=== PATIENT | female | born 1995 | race Asian ===

== ENCOUNTER 2017-06-24 14:12 | Emergency (ER) | payer OTHER ==
[~2017-06-24] VITALS: Ht 154.9 cm; Wt 62.0 kg
[2017-06-24 14:15] VITALS: TEMP 36.7; Ht 154.9 cm; Wt 62.0 kg
[2017-06-24] MEDS ORDERED: KETOROLAC TROMETHAMINE 30 MG/ML VIAL IV STA (14:38)
[2017-06-24] MEDS ORDERED: SODIUM CHLORIDE 0.9% 1000ML 1,000 ML IV STA (14:38)
[2017-06-24 14:56] VITALS: O2SAT 100
[2017-06-24 15:01] LABS: BASO % 0.3 %; BASO ABS # 0.02 K/uL (0-0.2); EOS % 5.3 %; EOS ABS # 0.31 K/uL (0-0.5); HEMATOCRIT 36.3 % (37-47); HEMOGLOBIN 12.4 g/dL (12.0-16.0); IG# 0.02 K/uL (0.00-0.02); LYMPH % 25.5 %; LYMPH ABS # 1.48 K/uL (1.2-3.4); MEAN CELL VOLUME 86.4 fL (80-100); MEAN CORPUSCULAR HEMOGLOBIN 29.5 pg (25-34); MEAN CORPUSCULAR HGB CONC 34.2 g/dl (32-36); MEAN PLATELET VOLUME 10.7 fL (7.4-10.4); MONO % 12.7 %; MONO ABS # 0.74 K/uL (0.11-0.59); NEUT % 55.9 %; NEUT ABS # 3.24 K/uL (1.4-6.5); PLATELET COUNT 212 K/uL (130-400); RED CELL DISTRIBUTION WIDTH CV 13.2 % (11.5-14.5); WHITE BLOOD COUNT 5.81 K/uL (4.8-10.8)
[2017-06-24 15:20] LABS: ALBUMIN 3.9 gm/dl (3.4-5.0); ALT/SGPT 22 U/L (12-78); AST/SGOT 19 U/L (15-37); BLOOD UREA NITROGEN 5 mg/dl (7-18); CARBON DIOXIDE 31 mmol/L (21-32); GLUCOSE 68 mg/dl (70-99); POTASSIUM 3.3 mmol/L (3.5-5.1); SODIUM 138 mmol/L (136-145)
--- NOTE | 2017-06-24 15:21 | EMERGENCY ROOM VISIT NOTE ---
History First contact with patient: 14:27 Chief Complaint: FEVER Stated Complaint: FEVER,COUGH,YU History of Present Illness The patient is a 21 year old female who presents to the Emergency Room with complaints of fevers/chills, body aches, cough, headaches that started 4 days ago. She states that her symptoms have been getting worse and now she feels dehydrated, which is what prompted her to come to the emergency department. She states her fevers and chills seem worse at night, and her cough is also worse at night. She has tried DayQuil since yesterday with some relief, has not taken anything today. She is up-to-date on immunizations, but has not had a flu shot this year. She denies any recent travel out of the country. She denies any known sick contacts, but is a [employer] student and states she has been around sick people in class. She denies any headaches currently, denies any neck pain or stiffness, denies chest pain, shortness of breath, abdominal pain, back pain, nausea, vomiting, diarrhea, blood in the stool, dysuria or urinary frequency, abnormal vaginal discharge, or rash. Last menstrual period 2 weeks ago, she denies concern for . Review of Systems A complete 10 point review of systems was reviewed with the patient with pertinent positives and negatives as per history of present illness. All else were negative. Past Medical/Surgical History No significant past medical or surgical history Social History Smoking Status: Never Smoker Alcohol Use: none Drug Use: none Marital Status: single Occupation Status: [employer] student Current/Historical Medications No Active Prescriptions or Reported Meds Allergies No known allergies Physical Exam Vital Signs Date Time Temp Pulse Resp B/P (MAP) Pulse Ox O2 Delivery O2 Flow Rate FiO2 06/24/17 16:55 72 20 105/68 99 Room Air 06/24/17 16:00 75 18 107/64 99 Room Air 06/24/17 14:56 100 Room Air 06/24/17 14:56 100 Room Air 06/24/17 14:15 36.7 81 16 112/72 99 Physical Exam CONSTITUTIONAL: Pleasant and cooperative. No acute distress. Mildly dehydrated , but otherwise well appearing and well nourished. HEENT: Normocephalic, atraumatic. Pupils equal, round and reactive to light, EOMI. TMs normal. Pharynx normal. Tacky mucous membranes. NECK: Supple, full active range of motion without discomfort. No cervical adenopathy. RESPIRATORY: Clear to auscultation bilaterally with no wheezing, crackles, rhonchi or stridor. Equal expansion bilaterally. CARDIOVASCULAR: Regular rate and rhythm with no murmurs, rubs or gallops. Normal peripheral perfusion. No edema. GASTROINTESTINAL: Soft, nontender, nondistended. No palpable masses or HSM. Bowel sounds present in all quadrants. MUSCULOSKELETAL: Full range of motion of all joints without discomfort. INTEGUMENTARY: No rash or other significant dermatologic conditions noted. NEUROLOGIC: Alert and oriented X 4 with normal affect. Cranial nerves II-XII grossly intact. No focal neurologic deficits noted. Normal speech. Normal gait observed. Medical Decision & Procedures ER Provider Diagnostic Interpretation: CHEST 2 VIEWS ROUTINE CLINICAL HISTORY: cough, fevers, eval PNA fever. Cough. COMPARISON STUDY: No previous studies for comparison. FINDINGS: The bones soft tissues and hemidiaphragms are normal. The cardiomediastinal silhouette is normal. The lungs are clear. The pulmonary vasculature is normal. IMPRESSION: Negative chest. Laboratory Results 06/24/17 14:30 Red Blood Count 4.20, Mean Corpuscular Volume 86.4, Mean Corpuscular Hemoglobin 29.5, Mean Corpuscular Hemoglobin Concent 34.2, Mean Platelet Volume 10.7, Neutrophils (%) (Auto) 55.9, Lymphocytes (%) (Auto) 25.5, Monocytes (%) (Auto) 12.7, Eosinophils (%) (Auto) 5.3, Basophils (%) (Auto) 0.3, Neutrophils # (Auto ) 3.24, Lymphocytes # (Auto) 1.48, Monocytes # (Auto) 0.74, Eosinophils # (Auto ) 0.31, Basophils # (Auto) 0.02 06/24/17 14:30 Test 06/24/17 14:27 06/24/17 14:30 06/24/17 14:43 Urine Color YELLOW Urine Appearance CLEAR (CLEAR) Urine pH 6.0 (4.5-7.5) Urine Specific Hunters 1.008 (1.000-1.030) Urine Protein NEG (NEG) Urine Glucose (UA) NEG (NEG) Urine Ketones NEG (NEG) Urine Occult Blood NEG (NEG) Urine Nitrite NEG (NEG) Urine Bilirubin NEG (NEG) Urine Urobilinogen NEG (NEG) Urine Leukocyte Esterase NEG (NEG) Urine Test NEG (NEG) White Blood Count 5.81 K/uL (4.8-10.8) Red Blood Count 4.20 M/uL (4.2-5.4) Hemoglobin 12.4 g/dL (12.0-16.0) Hematocrit 36.3 % (37-47) Mean Corpuscular Volume 86.4 fL (80-100) Mean Corpuscular Hemoglobin 29.5 pg (25-34) Mean Corpuscular Hemoglobin Concent 34.2 g/dl (32-36) Platelet Count 212 K/uL (130-400) Mean Platelet Volume 10.7 fL (7.4-10.4) Neutrophils (%) (Auto) 55.9 % Lymphocytes (%) (Auto) 25.5 % Monocytes (%) (Auto) 12.7 % Eosinophils (%) (Auto) 5.3 % Basophils (%) (Auto) 0.3 % Neutrophils # (Auto) 3.24 K/uL (1.4-6.5) Lymphocytes # (Auto) 1.48 K/uL (1.2-3.4) Monocytes # (Auto) 0.74 K/uL (0.11-0.59) Eosinophils # (Auto) 0.31 K/uL (0-0.5) Basophils # (Auto) 0.02 K/uL (0-0.2) RDW Standard Deviation 42.0 fL (36.4-46.3) RDW Coefficient of Variation 13.2 % (11.5-14.5) Immature Granulocyte % (Auto) 0.3 % Immature Granulocyte # (Auto) 0.02 K/uL (0.00-0.02) Anion Gap 4.0 mmol/L (3-11) Est Creatinine Clear Calc Drug Dose 125.2 ml/min Estimated GFR () > 150.0 Estimated GFR (Non- 130.3 BUN/Creatinine Ratio 8.2 (10-20) Calcium Level 9.0 mg/dl (8.5-10.1) Total Bilirubin 0.4 mg/dl (0.2-1) Aspartate Amino Transf (AST/SGOT) 19 U/L (15-37) Alanine Aminotransferase (ALT/SGPT) 22 U/L (12-78) Alkaline Phosphatase 68 U/L (45-117) Total Protein 8.0 gm/dl (6.4-8.2) Albumin 3.9 gm/dl (3.4-5.0) Globulin 4.1 gm/dl (2.5-4.0) Albumin/Globulin Ratio 1.0 (0.9-2) Influenza Type A Antigen Neg for Influ A (NEG) Influenza Type B Antigen Neg for Influ B (NEG) Medications Administered Medications (Trade) Dose Ordered Sig/Ephraim Route Start Time Stop Time Status Last Admin Dose Admin Sodium Chloride 1,000 ml @ 999 mls/hr Q1H1M STAT IV 06/24/17 14:38 06/24/17 15:38 DC 06/24/17 14:38 999 MLS/HR Ketorolac Tromethamine (Toradol Inj) 15 mg NOW STAT IV 06/24/17 14:38 06/24/17 14:41 DC 06/24/17 14:57 15 MG Medical Decision CC: Patient presenting with complaint of flulike symptoms, cough, body aches, fever/chills, headaches Interpretation of Labs: No leukocytosis, no anemia, no significant electrolyte abnormalities, normal renal function, normal liver enzymes. Influenza A/B negative. UA negative, urine negative. Differential Diagnosis: Includes, but not limited to viral URI, bronchitis, pneumonia, influenza, dehydration, meningitis, among others. Medication Reconciliation: I attest that I have personally reviewed the patient' s current medication list. Vital signs review: I reviewed the patient's vital signs and interpret them as follows: T: Afebrile; BP: Normotensive; HR: Within normal limits; RR: Within normal limits; Pulse Ox: Within normal limits on room air. Blood pressure screening: The patient was found to have normal blood pressure on screening and does not require follow-up for repeat blood pressure check. Summary: Patient was evaluated at bedside, history and physical exam performed. Patient is alert and oriented, in no acute distress and nontoxic appearing, resting calmly in the stretcher. Patient has a normal neurologic exam, denies any headaches, no neck pain or stiffness on exam, no meningismus. I do not suspect meningitis. Patient does appear mildly dehydrated. Orders were placed at bedside for labs, UA and urine , influenza A/B, IV fluids for hydration, IV Toradol for body aches, chest x-ray to evaluate for pneumonia. Patient discussed with Dr. Colye, who agrees with my assessment and plan. Labs reviewed as above, unremarkable. She is not . Chest x-ray shows no acute abnormalities. Patient reassessed multiple times throughout ED stay, she reports feeling improved after interventions. She is tolerating oral fluids. Patient was updated on all results and plan for discharge, she was encouraged to follow closely with the PCP if her symptoms do not improve in the next few days. Patient was also given strict return precautions should her symptoms worsen in any way, she verbalized understanding. Patient was discharged home in stable condition and inability. Impression Primary Impression: Viral URI with cough Departure Information Dispostion Home / Self-Care Condition GOOD Prescriptions No Active Prescriptions or Reported Meds Patient Instructions ED URI Viral, My [facility] [address] Additional Instructions You have been evaluated in the emergency department for your cough and congestion. There is no evidence of pneumonia on your chest x-ray today. Your influenza testing today is negative. For fevers, body aches, or headaches, you can use the following over-the- counter medicines (if >12 yo): - Regular strength (325mg/tab) Tylenol (acetaminophen) 2 tabs every 4-6 hours as needed. Do not exceed 10 tablets in a 24 hour period. Avoid taking more than 3000 mg of Tylenol per day. This includes any other sources of acetaminophen you may take on a regular basis. - Regular strength (200 mg/tab) Advil (ibuprofen) 3 tabs every 6-8 hours as needed. Do not exceed a dose of 2400 mg per day. - For best results, alternate dosing of Tylenol and Advil. Drink plenty of fluids to stay well hydrated. You may try nasal saline or Afrin nasal spray to help with your nasal congestion. These medications are available [id number]. Please follow-up with your PCP or at an urgent care in the next few days to be rechecked if your symptoms are not getting any better. Please return to the emergency department if you develop the following symptoms of: inability to swallow solids, liquids, or drool; excessive wheezing or inability to catch your breath; severe chest pain, coughing up blood, severe dizziness or passing out; fever or pain that becomes unmanageable with over-the- counter medications; or any other concerns.
[2017-06-24 15:22] LABS: ALKALINE PHOSPHATASE 68 U/L (45-117)
--- NOTE | 2017-06-24 15:27 | DIAGNOSTIC IMAGING REPORT ---
CHEST 2 VIEWS ROUTINE CLINICAL HISTORY: cough, fevers, eval PNA fever. Cough. COMPARISON STUDY: No previous studies for comparison. FINDINGS: The bones soft tissues and hemidiaphragms are normal. The cardiomediastinal silhouette is normal. The lungs are clear. The pulmonary vasculature is normal. IMPRESSION: Negative chest. The above report was generated using voice recognition software. It may contain grammatical, syntax or spelling errors. Electronically signed by: Tulio Lofton M.D. 06/24/2017 3:26 PM Dictated Date/Time: 06/24/2017 3:26 PM
[2017-06-24 15:49] LABS: INFLUENZA B ANTIGEN Neg for Influ B (NEG)
[2017-06-24 16:55] VITALS: BP 105/68; PULSE 72; O2SAT 99
== END 2017-06-24 17:01 | disposition home or self-care (01) ==
LOC: C.EDB 14:13 → C.EDA 17:01
DX: J06.9 Acute upper respiratory infection, unspecified (principal)